=== PATIENT | male | born 1965 | race Caucasian/White ===

== ENCOUNTER 2023-09-26 22:20 | Emergency (ER) | payer MEDICAID ==
[~2023-09-26] VITALS: Ht 188 cm; Wt 83.9 kg
[2023-09-26] MEDS ORDERED: FOLIC ACID1 MG PO (23:10)
[2023-09-26] MEDS ORDERED: MULTIVITAMIN1 TA1 (23:10)
[2023-09-26] MEDS ORDERED: DECADRON4 MG PO (23:11)
[2023-09-26 23:16] LABS: BASO% 0.5 % (0-3); EOS% 7.1 % (0-8); HEMATOCRIT 39.8 % (39.0-50.0); HEMOGLOBIN 13.6 g/dl (14.0-18.0); IMMATURE GRANULOCYTES 0.1 % (0.0-5.0); LYMPH% 17.1 % (15-41); MEAN CELL VOLUME 97.1 fL CALC (80.0-100.0); MEAN CORPUSCULAR HGB 33.2 pG CALC (26.0-32.0); MEAN CORPUSCULAR HGB CONC 34.2 g/dL CAL (32.0-36.0); MONO% 7.1 % (2-13); NEUT# 5.1 thou/uL (1.82-7.42); NEUT% 68.1 % (42-76); RED BLOOD COUNT 4.1 mill/uL (4.70-6.10); RED CELL DISTRI WIDTH 12.6 % (11.5-15.5)
[2023-09-26 23:27] VITALS: BP 135/86
[2023-09-26 23:31] VITALS: BP 124/73
[2023-09-26 23:31] LABS: INTERNATIONAL NORMALIZED RATIO 1.1 RATIO (0.7-1.3); PROTHROMBIN TIME 10.6 SECONDS (9.0-12.5)
[2023-09-26 23:33] LABS: ALBUMIN 4.4 g/dL (3.2-5.0); ALKALINE PHOSPHATASE 87 u/l (38-126); ANION GAP 13 (6-22 (CALC)); BILIRUBIN, TOTAL 0.7 mg/dL (0.2-1.3); BUN 14 mg/dL (9-20); BUN/CREATININE RATIO 19 (12-20 (CALC)); CARBON DIOXIDE 23 mmol/l (22-30); CHLORIDE 109 mmol/l (95-108); CREATININE 0.7 mg/dL (0.7-1.3); GFR FOR AFR.AMER. > 60 ML/MIN (>=60 (CALC)); GFR OTHER RACES > 60 ML/MIN (>=60 (CALC)); POTASSIUM 4.3 mmol/l (3.5-5.1); SGOT/AST 48 u/l (17-59); SODIUM 140 mmol/l (137-146); TOTAL PROTEIN 6.9 g/dL (6.3-8.2)
[2023-09-26 23:40] LABS: D-DIMER 0.47 mg/L (0.19-0.60)
[2023-09-27 00:30] VITALS: BP 137/88
[2023-09-27 01:00] VITALS: BP 136/79
[2023-09-27 01:20] LABS: URINE BILIRUBIN - DIPSTICK Negative (NEGATIVE); URINE BLOOD DIPSTICK Trace-intact (NEGATIVE); URINE COLOR Yellow; URINE GLUCOSE - DIPSTICK Negative (NEGATIVE); URINE KETONE Negative (NEGATIVE); URINE LEUK ESTERASE Negative (NEGATIVE); URINE NITRITE - DIPSTICK Negative (Negative); URINE PH 5.5 (4.5-8.0); URINE PROTEIN - DIPSTICK Negative (NEG-TRACE); URINE UROBILINOGEN - DIPSTICK 0.2 E.U./dL (0.2)
[2023-09-27 01:30] VITALS: BP 120/84
[2023-09-27] MEDS ORDERED: MEDDOSEPAK PO (01:31)
[2023-09-27] MEDS ORDERED: PROVENTIL HFA108 MCG IN (01:31)
[2023-09-27] MEDS ORDERED: ZITHROMAX250 MG PO (01:31)
[2023-09-27 02:00] VITALS: BP 133/86
== END 2023-09-27 02:00 | disposition home or self-care (01) ==
LOC: ED 22:20
PROVIDERS: Family Medicine
DX: J44.1 Chronic obstructive pulmonary disease with (acute) exacerbation (principal); F17.210 Nicotine dependence, cigarettes, uncomplicated; Z90.2 Acquired absence of lung [part of]; Z85.118 Personal history of other malignant neoplasm of bronchus and lung; Z20.822 Contact with and (suspected) exposure to COVID-19